=== PATIENT | male | born 1990 | race Caucasian/White ===

== ENCOUNTER 2016-11-10 15:28 | Emergency (ER) | payer OTHER ==
--- NOTE | ~2016-11-10 | CR230 ---
[facility] A Service of [facility] RADIOLOGY TEXT RESULTS PATIENT: GISELLE KING LOCATION: [facility] : [birth year] UNIT #: [id number] AGE: [address]: Kanu Kaur MD SEX: M ORDER DR: [id number] [facility]. [place], [place] [address] [id number] E MR#: [id number] Acc #: [id number] NAME: GISELLE KING : 1990 SEX: M STUDY DATE/TIME: 11/10/2016 16:49 UNIT: [facility] ROOM: STUDY DESCRIPTION: CR Shoulder Min 2 View Rt Attending Physician: Kanu Kaur Ordering Physician: Ed Jaya Wagner M.D. Primary Care Physician: Jadiel Smith M.D. MEDICAL IMAGING REPORT This report is preliminary unless electronic signature is present EXAM 3 views right shoulder INDICATION Right shoulder pain after a 5 x 2 hit his shoulder today. FINDINGS I think this patient does have a fracture involving the humeral head as there is irregularity involving the lateral aspect of the humeral head on both the Y-view and the internal rotation view. No other acute fracture or subluxation is identified and there may be some overlying soft tissue swelling. IMPRESSION Suspected right humeral head fracture as there is irregularity involving the lateral aspect of the humeral head in both the Y-view and the internal rotation view. CT may be helpful for additional evaluation. Dictated by... Shira Chand M.D. THIS IS AN ELECTRONICALLY VERIFIED REPORT Shira Chand M.D. at 11/11/2016 4:39 PM AFF/bridget TD: 11/11/2016 00:57 JOB #: [id number] MEDICAL IMAGING REPORT Page 1 of 1 COPY
[~2016-11-10 15:28] MED LIST: AMOXICILLIN PO; KEPPRA500 M2 PO; SEROQUEL PO; TOPAMAX PO
[2016-11-10 16:57] LABS: URINE SOURCE CLEAN CATCH
[2016-11-10 17:03] LABS: URINE APPEARANCE CLEAR; URINE BILIRUBIN NEG (NEG); URINE BLOOD NEG (NEG); URINE COLOR YELLOW; URINE GLUCOSE NEG (NEG); URINE KETONE NEG (NEG); URINE LEUKOCYTE ESTERASE 1+ (NEG); URINE NITRATE NEG (NEG); URINE PROTEIN TRACE (NEG); URINE SPECIFIC GRAVITY 1.009 (1.003-1.035); URINE UROBILINOGEN 0.2 MG/DL (NEG)
[2016-11-10 17:07] LABS: CULTURE INDICATED? YES; URBCS1 AUWI 0-2 /[HPF] (0-2); URINE BACTERIA AUWI NEG (NEGATIVE); URINE SQUAMOUS EPITHELIAL CELL NONE SEEN /[HPF]
[2016-11-10 17:11] LABS: AMPHETAMINE NEG (NEG); BARBITURATES NEG (NEG); BENZODIAZEPINES NEG (NEG); COCAINE NEG (NEG); MARIJUANA NEG (NEG); OPIATES NEG (NEG); TRICYCLIC ANTIDEPRESSANTS NEG (NEG); U METHADONE NEG (NEG)
[2016-11-10 17:28] LABS: BASOPHIL% 0.3 % (0-2.5); EOSINOPHIL# 0.1 X10e3 (0-0.7); EOSINOPHIL% 0.4 % (0.0-7.0); HEMATOCRIT 46.8 % (38.0-50.0); HEMOGLOBIN 15.5 gm/dL (13.0-16.0); LYMPHOCYTE% 6.9 % (17.0-45.0); MEAN CELL VOLUME 87.9 FL (83-96); MEAN PLATELET VOLUME 8.9 FL (6.5-11.5); MONOCYTE# 0.6 X10e3 (0-1.0); MONOCYTE% 4.2 % (3.0-12.0); NEUTROPHIL# 12.3 X10e3 (1.5-7.1); NEUTROPHIL% 88.2 % (40-75); PLATELET COUNT 324 X10e3 (140-420); RED BLOOD COUNT 5.32 X10e (3.90-5.60); RED CELL DISTRIBUTION WIDTH 13.1 % (11.0-15.5); WHITE BLOOD COUNT 13.9 X10e3 (4.0-10.5)
[2016-11-10 17:29] LABS: DIFF IND NO
[2016-11-10 17:49] LABS: BLOOD UREA NITROGEN 11 mg/dL (9-23); BUN/CREATININE RATIO 12.22; CALCIUM SERUM 9.2 mg/dL (8.4-10.2); CARBON DIOXIDE 26 mmol/L (22-31); CHLORIDE 93 mmol/L (100-111); CREATININE SERUM 0.9 mg/dL (0.6-1.4); GLOM FILT RATE Estimated 117.5 mL/min (>60); GLUCOSE FASTING 114 mg/dL (70-110); POTASSIUM 3.8 mmol/L (3.5-5.1); SODIUM 131 mmol/L (135-145)
[2016-11-10 17:51] LABS: ALCOHOL BLOOD <5 mg/dL (0)
== END 2016-11-10 19:30 | disposition home or self-care (01) ==
LOC: CED 15:28
PROVIDERS: Emergency Medicine
DX: G40.909 Epilepsy, unspecified, not intractable, without status epilepticus (principal); F90.9 Attention-deficit hyperactivity disorder, unspecified type; F84.0 Autistic disorder
CPT/HCPCS: 36415; 73030; 80048; 80307; 81003; 84443; 85025; 87086; 99284; G0480